=== PATIENT | male | born 1995 | race African-American/Black ===

== ENCOUNTER 2019-03-26 05:33 | Day surgery (SDC) | payer OTHER ==
[~2019-03-26 05:33] MED LIST: Buffered Lidocaine 1% SYRIN* 1 ML/SYRINGE INTRADERM ONE; Ondansetron TAB* 4 MG PO ONE
[2019-03-26] MEDS ORDERED: Ondansetron ODT TAB* 4 MG ONE (06:00)
[2019-03-26] MEDS ORDERED: Buffered Lidocaine 1% SYRIN* 1 ML/SYRINGE INTRADERM ONE (06:00)
[2019-03-26] MEDS ORDERED: Dexamethasone TAB* 4 MG PO ONE (06:00)
[2019-03-26] MEDS ORDERED: Dexamethasone TAB* 4 MG ONE (06:00)
[2019-03-26] MEDS ORDERED: Famotidine IV* 10 MG/ML 2 ML (20 mg) ONE (06:00)
[2019-03-26] MEDS ORDERED: Lactated Ringers 1000 ML Bag* 1,000 ML IV SCH (06:00)
[2019-03-26] MEDS ORDERED: Famotidine IV* 10 MG/ML 2 ML (20 mg) IV ONE (06:00)
[2019-03-26] MEDS ORDERED: ceFAZolin 2 GM PREMIX in ORs 2 GM/50 ML BAG IVPB ONE (06:00)
[2019-03-26] MEDS ORDERED: Bupivacaine 0.5%* 50 ML VIAL ONE (06:50)
[2019-03-26] MEDS ORDERED: Naloxone* 0.4 MG/ML 1 ML VIAL IV PRN (07:04)
[2019-03-26] MEDS ORDERED: Scopolamine 1.5 mg* PATCH TRANSDERM PRN (07:04)
[2019-03-26] MEDS ORDERED: oxyCODONE/Acetamin 5/325 MG* TAB PO PRN (07:04)
[2019-03-26] MEDS ORDERED: DiMENhydriNATE IV* 50 MG/ML VIAL IV PUSH PRN (07:04)
[2019-03-26] MEDS ORDERED: HYDROmorphone INJ1* 1 MG/ML SYRINGE IV PRN (07:04)
[2019-03-26] MEDS ORDERED: PROCHLORPERAZINE INJ 5 MG/ML 2 ML VIAL IV PRN (07:04)
[2019-03-26] MEDS ORDERED: fentaNYL* 50 MCG/ML 2 ML VIAL (100 MCG VIAL) IV PRN (07:04)
[2019-03-26] MEDS ORDERED: KETAMINE HCL* 50 MG/ML 10 ML VIAL ONE (07:14)
[2019-03-26] MEDS ORDERED: Midazolam* 1 MG/ML 5 ML VIAL (5 MG) ONE (07:14)
[2019-03-26] MEDS ORDERED: fentaNYL* 50 MCG/ML 5 ML VIAL (250 MCG VIAL) ONE (07:14)
[2019-03-26] MEDS ORDERED: Lidocaine 2% PF * 5 ML VIAL ONE (08:07)
[2019-03-26] MEDS ORDERED: Propofol* 10 MG/ML 20 ML BTL ONE (08:07)
[2019-03-26] MEDS ORDERED: Ketorolac INJ* 30 MG/ML 1 ML VIAL ONE (08:07)
[2019-03-26 10:04] VITALS: BP 138/84
[2019-03-26] MEDS ORDERED: oxyCODONE/Acetamin 5/325 MG* TAB ONE (10:31)
[2019-03-26] MEDS ORDERED: Scopolamine 1.5 mg* PATCH ONE (10:31)
--- NOTE | 2019-03-26 12:55 | OP ---
Operative Report - Blank - Operative Report Date of Operation: 03/26/19 Note: PATIENT: Jhony Gandhi DATE OF : 1995 DATE OF SURGERY: 03/26/2019 SURGEON: Kenny Hernandez MD [employer]OLOGY [employer]: Singh Rebolledo MD and USMAN Torrez, whos assistance was necessary for positioning, retraction, help with instrumentation, and closure. ANESTHESIOLOGIST: Dr. 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 OPERATION: Left 5th metatarsal fracture nonunion open reduction and internal fixation with autogenous bone grafting from the left cuboid bone. ANESTHESIA: General IMPLANTS: Arthrex 3.0mm cannulated screws TOURNIQUET TIME: 67 minutes with a well-padded thigh tourniquet at 250 mmHg SPECIMENS: none ESTIMATED BLOOD LOSS: minimal COMPLICATIONS: none STATUS: Stable from the operating room to the recovery room and then home. INDICATIONS FOR PROCEDURE: Jhony has had persistent pain in his left fifth metatarsal base, with evidence of a chronic nonuniited fracture. Both operative and non operative treatment alternatives were reviewed. Further, the nature and risks of surgery were reviewed in careful detail, in the office as well as the pre-operative holding area. Our discussions regarding the risks of surgery included, but were not limited to, infection, wound problems, nerve injury, neuroma, RSD, persistent symptoms, blood clot, nonunion, malunion, hardware failure, failure of the surgery, and even the remote chance of catastrophic complication. DESCRIPTION OF PROCEDURE: The patient was seen in the preoperative holding unit and informed written consent was obtained. The appropriate extremity was marked. The patient was then brought to the operating room and carefully positioned on the operating room table. Anesthesia was induced. All bony prominences were padded with great care. A chlorhexidine based pre-scrub was performed followed by a chloraprep prep and drape in standard sterile fashion. A surgical safety pause was then conducted in which we confirmed the appropriate patient, extremity, planned procedure, availability of equipment, indication and administration of prophylactic antibiotics, and DVT prophylaxis in the form of a compression boot on the non-surgical extremity. I began with an Esmarch exsanguination of the limb and inflated the tourniquet. I made an approximately 5 cm longitudinal incision centered at the base of the fifth metatarsal. Carefully dissected down to the level of the peroneus brevis tendon and periosteum. I elevated the insertion of the peroneus brevis subperiosteally superiorly. This gave good visualization of the nonunion. The fibrous tissue at the nonunion site was removed with a 15 blade scalpel, Rongeur , and small curette. I then used a 2.4 mm nehal to remove the sclerotic and cortical bone from the two sides of the nonunion site. I then turned my attention to the cuboid bone. I carefully dissected down to the lateral aspect of the cuboid. Fluoroscopy was used to confirm my location. I then used the nehal to make a small window in the lateral aspect of the cuboid. I then used a small curette to harvest cancellus bone graft. I then took the bone graft and placed it into the fifth metatarsal base nonunion site. I then used a pointed reduction clamp to reduce and compress the fracture site. Guidewires for two 3.0 mm cannulated Arthrex screws were then placed across the fracture site bicortically. A cannulated depth gauge was used to measure the length, and the guidewires were overdrilled. Two 3.0 mm cannulated screws were then placed. These had phenomenal purchase and provided good compression. Final fluoroscopic images were obtained. A sterile dressing was then applied followed by a splint with the ankle in neutral position. The patient was then awakened from anesthesia and transferred to the recovery room in stable condition. There were no complications. All needle and sponge counts were correct at the end of the case. ATTESTATION: I attest I was present and scrubbed and performed the critical portions of the procedure myself. POSTOPERATIVE PLAN: The patient will remain [id number] for an anticipated duration of six weeks. Follow up will be in two weeks for likely suture removal and Steri-Strip application. We will plan to transition the patient into a short-leg cast at that time.
[2019-03-29] MEDS ORDERED: Scopolamine PATCH Remove* 1 NOTE MISC PATCH OFF ONE (07:05)
== END 2019-03-26 11:17 | disposition home or self-care (01) ==
LOC: OR 05:33
PROVIDERS: ATTEND Orthopaedic Surgery
DX: S92.352K Displaced fracture of fifth metatarsal bone, left foot, subsequent encounter for fracture with nonunion (principal); X50.0XXD Overexertion from strenuous movement or load, subsequent encounter; Y93.67 Activity, basketball; Y92.310 Basketball court as the place of occurrence of the external cause
CPT/HCPCS: 76000; A9270-GY; C1713; J0690; J1885; J2250; J2704; J3010; J3490; J8540

== ENCOUNTER 2019-03-29 19:04 | Emergency (ER) | payer OTHER ==
--- OUTSIDE RECORDS SUMMARY | 2019-03-29 19:26 | XMS REPORT | Continuity of Care Document ---
:1995 External Reference #:[id number] Author Name Cece Sarah Care Team Providers Name Role Phone Patient's Choice Primary Care Physician Unavailable Payers Date Identification Numbers Payment Provider Subscriber Policy Number: [id number] [employer] Jhony Gandhi PayID: [id number] [address] [place] [address] Advance Directives Description No Information Available Problems Description No Information Family History Description No Information Available Social History Type Date Description Comments Sex Unknown Lives With teammates ETOH Use Occasionally consumes alcohol Tobacco Use Start: Unknown Patient has never smoked Smoking Status Reviewed: 03/15/19 Patient has never smoked Exercise Type/Frequency Exercises regularly Allergies, Adverse Reactions, Alerts Description No Known Drug Allergies Medications Description No Active Medications Immunizations Description No Information Available Vital Signs Date Vital Result Comment 03/15/2019 2:13pm Height 76 inches 6'4" Weight 205.00 lb Heart Rate 56 /min BP Systolic 104 mmHg BP Diastolic 66 mmHg Respiratory Rate 12 /min Pain Level 4 BMI (Body Mass Index) 25.0 kg/m2 03/08/2019 9:56am Height 76 inches 6'4" Weight 209.00 lb Heart Rate 60 /min BP Systolic 138 mmHg BP Diastolic 82 mmHg Respiratory Rate 16 /min Body Temperature 97.4 F Pain Level 6 BMI (Body Mass Index) 25.4 kg/m2 Results Description No Information Available Procedures Description No Information Available Encounters Type Date Location Provider Dx Diagnosis Office Visit 03/08/2019 [facility]opedic Kenny Hernandez [id number] Disp fx of 9:[facility] metatarsal bone, l ft, subs for fx w nonunion Plan of Treatment Future Appointment(s):04/08/2019 11:15 am - Kenny Hernandez MD at [facility]03/15/2019 - Kenny Hernandez, [id number] Displaced fracture of fifth metatarsal bone, left foot, subsFollow up:Follow Up: 13-15 days postop
--- OUTSIDE RECORDS SUMMARY | 2019-03-29 19:26 | XMS REPORT | Continuity of Care Document ---
:1995 External Reference #:[id number] Author Name Jessica Roberson Care Team Providers Name Role Phone Patient's Choice Primary Care Physician Unavailable Payers Date Identification Numbers Payment Provider Subscriber Policy Number: [id number] [employer] Jhony Gandhi PayID: [id number] [address] [place] [address] Advance Directives Description No Information Available Problems Description No Information Family History Description No Information Available Social History Type Date Description Comments Sex Unknown Lives With teammates ETOH Use Occasionally consumes alcohol Tobacco Use Start: Unknown Patient has never smoked Smoking Status Reviewed: 03/08/19 Patient has never smoked Exercise Type/Frequency Exercises regularly Allergies, Adverse Reactions, Alerts Description No Known Drug Allergies Medications Description No Active Medications Immunizations Description No Information Available Vital Signs Date Vital Result Comment 03/08/2019 9:56am Height 76 inches 6'4" Weight 209.00 lb Heart Rate 60 /min BP Systolic 138 mmHg BP Diastolic 82 mmHg Respiratory Rate 16 /min Body Temperature 97.4 F Pain Level 6 BMI (Body Mass Index) 25.4 kg/m2 Results Description No Information Available Procedures Description No Information Available Encounters Description No Information Available Plan of Treatment 03/08/2019 - Kenny Hernandez [id number] Displaced fracture of fifth metatarsal bone, left foot, subsNew Xrays:CT Extremity Lower Left Wo, Ordered: Follow up:after testing / imaging is completed
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
[2019-03-29] MEDS ORDERED: oxyCODONE/Acetamin 5/325 MG* TAB PO ONE (21:14)
[2019-03-29 22:20] VITALS: BP 135/70
== END 2019-03-29 22:21 | disposition home or self-care (01) ==
LOC: ED 19:04
DX: M79.672 Pain in left foot (principal); Z98.890 Other specified postprocedural states
CPT/HCPCS: 99282; A9270-GY